=== PATIENT | female | born 1985 | race Hispanic/Latino ===

== ENCOUNTER 2024-08-12 17:38 | Inpatient (IN) | payer MEDICARE, SELFPAY ==
[2024-08-12 18:16] LABS: #Basophils Less than 0.03 10x3/uL (0.0-0.2); #Eosinophils Less than 0.03 10x3/uL (0.0-0.7); %Basophils 0.2 % (0.0-1.0); %Eosinophils 0.1 % (0.0-10.0); %Lymphocytes 11.5 % (21.0-51.0); %Monocytes 4.9 % (0.0-10.0); Hemoglobin 13.8 g/dL (12.0-16.0); Mean Corpuscular HGB CONC 32.9 g/dL (32.0-36.0); Mean Corpuscular Hemoglobin 27.5 pg (27.0-31.0); Mean Corpuscular Volume 83.7 fL (78.0-98.0); Mean Platelet Volume 10.8 fL (7.4-10.4); Platelet Count 308 10x3/uL (130-400); RBC Distribution Width 12.6 % (11.5-14.5); Red Blood Cell (RBC) Count 5.02 mill/uL (4.20-5.40)
[2024-08-12 18:36] LABS: ALT (SGPT) 194 U/L (8-55); AST (SGOT) 304 U/L (5-34); Alkaline Phosphatase 163 U/L (40-110); Anion Gap 18 mmol/L (10-20); BUN (Urea Nitrogen) 8 mg/dL (7.0-18.7); Bilirubin, Total 0.7 mg/dL (0.2-1.2); Calc. Creatinine Clearance 0 mL/min (70-130); Calcium 9.1 mg/dL (7.8-10.44); Carbon Dioxide 16 mmol/L (22-29); Chloride 103 mmol/L (98-107); Estimated GFR 108; Globulin 3.9 g/dL (2.4-3.5); Glucose 276 mg/dL (70-105); Potassium 4.5 mmol/L (3.5-5.1); Protein, Total 7.9 g/dL (6.0-8.3); Sodium 132 mmol/L (136-145)
[2024-08-12 18:42] LABS: Troponin I Less than 0.010 ng/mL (< 0.028)
[2024-08-12] MEDS ORDERED: Ondansetron PF 4 MG/2 ML Vial ONE (19:41)
[2024-08-12] MEDS ORDERED: cefTRIAXone (ROCEPHIN) 1 GM VIAL ONE (19:42)
[2024-08-12] MEDS ORDERED: Morphine 4 MG/ML VIAL ONE (19:42)
[2024-08-12] MEDS ORDERED: Sodium Chloride 0.9% 100 ML ONE (19:44)
[2024-08-12 20:19] LABS: Phosphorus 3.1 mg/dL (2.3-4.7)
[2024-08-12 20:20] LABS: Lipase 43 U/L (8-78)
[2024-08-12 20:47] LABS: Bacteria/HPF None Seen HPF (None Seen); Bilirubin Negative (Negative); Blood, Urine 1+ (Negative); CAUTI Indications for Culture Fever or rigors; Clarity Clear (Clear); Glucose, Urine (Dipstick) Greater than 1000 mg/dL (Negative); Ketone, Urine Greater than 150 mg/dL (Negative); Leukocyte 75 Leu/uL (Negative); Nitrite Negative (Negative); Protein, Urine (Dipstick) 20 mg/dL (Neg-Trace); RBC/HPF 0-3 HPF (0-3); Specific Gravity, Urine 1.029 (1.002-1.036); Urobilinogen Normal mg/dL (Less than 2); pH, Urine 5.5 (5.0-9.0)
[2024-08-12 20:57] LABS: Urine Culture Reflex No No
[2024-08-12] MEDS ORDERED: INSULIN REGULAR IN 0.9 % NACL 100 ML IVPB SCH (21:30)
[2024-08-12] MEDS ORDERED: Dextrose 50% Abboject 50 ML SYRINGE SLOW IVP PRN ×2 (21:30→23:08)
[2024-08-12] MEDS ORDERED: D5 1/2 NS w/20 mEq KCL 1,000 ML IV PRN (21:30)
[2024-08-12] MEDS ORDERED: NS 0.9% w/ 20 MEQ KCL 1,000 ML IV PRN ×2 (21:30)
[2024-08-12] MEDS ORDERED: Sodium Chloride 0.9% 1,000 ML IV PRN ×4 (21:30)
[2024-08-12] MEDS ORDERED: Electrolyte Replacement Protocol IVPB SCH (21:30)
[2024-08-12] MEDS ORDERED: Dextrose 5 %-0.45 % NaCl 1,000 ML IV PRN (21:30)
[2024-08-12] MEDS ORDERED: D5 1/2 NS w/20 mEq KCL 1,000 ML ONE ×2 (21:33→22:04)
[2024-08-12] MEDS ORDERED: INSULIN REGULAR IN 0.9 % NACL 100 ML ONE (21:33)
[2024-08-12 22:26] LABS: Hemoglobin A1c Greater than 14.0 % (4.0-6.0)
[2024-08-12 22:32] LABS: Anion Gap 15 mmol/L (10-20); BUN (Urea Nitrogen) 6 mg/dL (7.0-18.7); Calc. Creatinine Clearance 0 mL/min (70-130); Calcium 8.2 mg/dL (7.8-10.44); Carbon Dioxide 14 mmol/L (22-29); Chloride 107 mmol/L (98-107); Estimated GFR 119; Glucose 214 mg/dL (70-105); Magnesium 1.7 mg/dL (1.6-2.6); Potassium 4.3 mmol/L (3.5-5.1); Sodium 132 mmol/L (136-145)
[2024-08-12] MEDS ORDERED: Glucagon 1 MG/ML KIT IM PRN (23:08)
[2024-08-12] MEDS ORDERED: Dextrose 5% in Water 1,000 ML IV PRN (23:08)
[2024-08-12 23:43] LABS: Anion Gap 13 mmol/L (10-20); BUN (Urea Nitrogen) 6 mg/dL (7.0-18.7); Calc. Creatinine Clearance 0 mL/min (70-130); Calcium 8.1 mg/dL (7.8-10.44); Carbon Dioxide 15 mmol/L (22-29); Chloride 108 mmol/L (98-107); Estimated GFR 119; Glucose 251 mg/dL (70-105); Sodium 132 mmol/L (136-145)
[2024-08-13] MEDS: Acetaminophen/Codeine 30-300mg Tablet PO PRN (00:50)
[2024-08-13] MEDS: HumuLIN 70/30 100 Unit/ml 10 ml Vial SC SCH (00:51)
[2024-08-13 01:01] VITALS: BMI 24.7
[2024-08-13 01:55] LABS: Anion Gap 13 mmol/L (10-20); BUN (Urea Nitrogen) 5 mg/dL (7.0-18.7); Calc. Creatinine Clearance 137 mL/min (70-130); Calcium 8.1 mg/dL (7.8-10.44); Carbon Dioxide 15 mmol/L (22-29); Chloride 108 mmol/L (98-107); Estimated GFR 120; Glucose 205 mg/dL (70-105); Potassium 3.8 mmol/L (3.5-5.1); Sodium 132 mmol/L (136-145)
[2024-08-13 05:25] LABS: Anion Gap 9 mmol/L (10-20); BUN (Urea Nitrogen) 6 mg/dL (7.0-18.7); Calc. Creatinine Clearance 139 mL/min (70-130); Calcium 8.2 mg/dL (7.8-10.44); Carbon Dioxide 19 mmol/L (22-29); Chloride 109 mmol/L (98-107); Estimated GFR 120; Glucose 156 mg/dL (70-105); Potassium 3.2 mmol/L (3.5-5.1); Sodium 134 mmol/L (136-145)
[2024-08-13 06:39] LABS: Anion Gap 10 mmol/L (10-20); BUN (Urea Nitrogen) 7 mg/dL (7.0-18.7); Calc. Creatinine Clearance 127 mL/min (70-130); Calcium 8.1 mg/dL (7.8-10.44); Carbon Dioxide 17 mmol/L (22-29); Chloride 110 mmol/L (98-107); Estimated GFR 118; Glucose 152 mg/dL (70-105); Potassium 3.2 mmol/L (3.5-5.1); Sodium 134 mmol/L (136-145)
[2024-08-13] MEDS: Magnesium 2 GM/50 ML(in water) 2 GM in Premix 1 BAG IVPB SCH (08:43)
[2024-08-13] MEDS: Potassium Bicarbonate/Cit Ac 20 MEQ TAB PO SCH (08:43)
[2024-08-13] MEDS: Ondansetron PF 4 MG/2 ML Vial IVP PRN (10:57)
[2024-08-13] MEDS: Insulin Lispro 100 UNIT/ML 10 ML VIAL SC PRN ×2 (16:45→20:58)
[2024-08-13] MEDS: cefTRIAXone\\ROCEPHIN 1 GM in Sodium Chloride 0.9% 100 ML IVPB SCH (20:59)
[2024-08-14 05:41] LABS: #Basophils Less than 0.03 10x3/uL (0.0-0.2); %Basophils 0.2 % (0.0-1.0); %Eosinophils 1.3 % (0.0-10.0); %Lymphocytes 35.5 % (21.0-51.0); %Monocytes 11.6 % (0.0-10.0); %Neutrophils 51.2 % (42.0-75.0); Hematocrit 36.2 % (36.0-47.0); Hemoglobin 12.1 g/dL (12.0-16.0); Mean Corpuscular HGB CONC 33.4 g/dL (32.0-36.0); Mean Corpuscular Hemoglobin 27.6 pg (27.0-31.0); Mean Corpuscular Volume 82.6 fL (78.0-98.0); Platelet Count 259 10x3/uL (130-400); RBC Distribution Width 12.8 % (11.5-14.5); Red Blood Cell (RBC) Count 4.38 mill/uL (4.20-5.40)
[2024-08-14 05:52] LABS: Anion Gap 11 mmol/L (10-20); BUN (Urea Nitrogen) 9 mg/dL (7.0-18.7); Calc. Creatinine Clearance 121 mL/min (70-130); Calcium 8.7 mg/dL (7.8-10.44); Carbon Dioxide 20 mmol/L (22-29); Chloride 108 mmol/L (98-107); Estimated GFR 116; Glucose 228 mg/dL (70-105); Potassium 3.1 mmol/L (3.5-5.1); Sodium 136 mmol/L (136-145)
[2024-08-14] MEDS ORDERED: Potassium Bicarbonate/Cit Ac 20 MEQ TAB PO SCH (08:00)
[2024-08-14] MEDS: Potassium Chloride 20 MEQ TAB PO SCH (08:42)
[2024-08-14 11:37] VITALS: BP 127/84; TEMP 98.3
== END 2024-08-14 11:26 | disposition home or self-care (01) | DRG 689 ==
LOC: ERS 17:38 → T4-A 21:23
PROVIDERS: ADMIT Hospitalist; ATTEND Internal Medicine
DX: N39.0 Urinary tract infection, site not specified (principal); E11.10 Type 2 diabetes mellitus with ketoacidosis without coma; E87.1 Hypo-osmolality and hyponatremia; E87.6 Hypokalemia; K52.9 Noninfective gastroenteritis and colitis, unspecified; Z90.49 Acquired absence of other specified parts of digestive tract; Z98.890 Other specified postprocedural states; K08.89 Other specified disorders of teeth and supporting structures
CPT/HCPCS: 36415; 36416; 71046; 80048; 80053; 81001; 82010; 83036; 83605; 83690; 83735; 84100; 84484; 85025; 87086; 87428; 93005; 96374; 96375; J0696; J1815; J2272; J2405; J3475; J3480